=== PATIENT | male | born 1945 | race Caucasian/White ===

== ENCOUNTER 2021-07-01 07:40 | Observation (INO) | payer OTHER ==
[2021-07-01 08:21] VITALS: BMI 21.2
[2021-07-01 09:46] LABS: BASO % 0.4 % (0-2.0); EOS % 0.1 % (0-4.5); HEMATOCRIT 37.8 % (35.4-49); HEMOGLOBIN 12.9 GM/dL (11.7-16.9); LYMPH % 8.9 % (8-40); MCH 31.4 pg (25.7-33.7); MCHC 34.1 g/dl (32.0-35.9); MEAN CELL VOLUME 91.9 fl (80-96); MEAN PLT VOLUME 10.2 fl (7.5-11.1); MONO % 9.3 % (3.8-10.2); NEUT % 81.3 % (42.8-82.8); PLATELET COUNT 214 10^3/uL (134-434); RBC 4.11 M/mm3 (4.00-5.60); RDW 14.5 % (11.9-15.9); WHITE BLOOD COUNT 8.7 K/mm3 (4.0-10.0)
[2021-07-01 09:47] LABS: INR 1.08 (0.83-1.09); PROTHROMBIN TIME (PATIENT) 12.6 SEC (9.7-13.0)
[2021-07-01 09:50] LABS: ACTIVATED PTT 26.8 SECONDS (25.2-36.5)
[2021-07-01 09:56] LABS: CHLORIDE 107 mmol/L (98-107); SODIUM 142 mmol/L (136-145)
[2021-07-01 09:58] LABS: CALCIUM 9.3 mg/dL (8.5-10.1)
[2021-07-01 09:59] LABS: ALBUMIN 3.7 g/dl (3.4-5.0); ANION GAP 7 MMOL/L (8-16); BLOOD UREA NITROGEN 26.1 mg/dL (7-18); CO2 28 mmol/L (21-32); GLUCOSE,RANDOM 163 mg/dL (74-106); MAGNESIUM 1.7 mg/dL (1.8-2.4)
[2021-07-01 10:02] LABS: CREATININE 1.2 mg/dL (0.55-1.3); SGPT/ALT 21 U/L (13-61)
[2021-07-01 10:04] LABS: BILIRUBIN,TOTAL 0.5 mg/dL (0.2-1); TOT PROT 6.8 g/dl (6.4-8.2)
[2021-07-01 10:05] LABS: ALK PHOS 97 U/L (45-117)
[2021-07-01 10:07] LABS: N-TERMINAL BNP 331.6 pg/ml (5-125); SGOT/AST 18 U/L (15-37)
[2021-07-01] MEDS ORDERED: SODIUM CHLORIDE 0.9% 500 ML INFUS.BAG IV ONE (12:36)
[2021-07-01 14:26] LABS: EPI CELLS 3 /uL (0-25.1); HYALINE CASTS 1 /uL (0-3.1); PH,URINE 6.5 (5.0-8.0); URINE APPEARANCE CLEAR; URINE BACTERIA 12 /uL (0-1359); URINE BILIRUBIN NEGATIVE (NEGATIVE); URINE COLOR YELLOW; URINE GLUCOSE (UA) NEGATIVE (NEGATIVE); URINE KETONE 1+ (NEGATIVE); URINE LEUK ESTERASE NEGATIVE (NEGATIVE); URINE NITRITE NEGATIVE (NEGATIVE); URINE PROTEIN 1+ (NEGATIVE); URINE RBC 21 /uL (0-23.9); URINE UROBILINOGEN 0.2 mg/dL (0.2-1.0); URINE WBC 3 /uL (0-25.8)
[2021-07-01] MEDS: SODIUM CHLORIDE 0.45% 1,000 ML IV SCH ×2 (17:25→21:44)
[2021-07-01] MEDS: INSULIN SLIDING SCALE (NOVOLOG) 1 VIAL SQ SCH ×2 (21:17→21:52)
[2021-07-01] MEDS: CARBIDOPA/LEVODOPA 25/100 TABLET (FP) PO SCH (21:48)
[2021-07-01] MEDS ORDERED: CARBIDOPA/LEVODOPA 25/100 TABLET (FP) PO SCH (22:00)
[2021-07-02] MEDS: CARBIDOPA/LEVODOPA 25/100 TABLET (FP) PO SCH ×2 (06:05→16:59)
[2021-07-02] MEDS: INSULIN SLIDING SCALE (NOVOLOG) 1 VIAL SQ SCH ×2 (06:14→13:51)
[2021-07-02 09:34] LABS: HEMATOCRIT 37.3 % (35.4-49); HEMOGLOBIN 12.5 GM/dL (11.7-16.9); MCH 30.8 pg (25.7-33.7); MCHC 33.4 g/dl (32.0-35.9); MEAN CELL VOLUME 92.4 fl (80-96); PLATELET COUNT 209 10^3/uL (134-434); RBC 4.04 M/mm3 (4.00-5.60); RDW 14.4 % (11.9-15.9); WHITE BLOOD COUNT 5.1 K/mm3 (4.0-10.0)
[2021-07-02] MEDS ORDERED: TAMSULOSIN HCL 0.4 MG CAP PO SCH (10:00)
[2021-07-02 10:09] LABS: CALCIUM 8.6 mg/dL (8.5-10.1)
[2021-07-02 10:10] LABS: ALBUMIN 3.2 g/dl (3.4-5.0); BLOOD UREA NITROGEN 17.4 mg/dL (7-18); MAGNESIUM 1.7 mg/dL (1.8-2.4)
[2021-07-02 10:13] LABS: CREATININE 0.9 mg/dL (0.55-1.3); PHOSPHOROUS 3.3 mg/dL (2.5-4.9)
[2021-07-02 10:16] LABS: BILIRUBIN,TOTAL 0.4 mg/dL (0.2-1)
[2021-07-02] MEDS: ENOXAPARIN NA (PORCINE) 40 MG/0.4 ML DISP.SYRIN SQ SCH ×2 (10:53→10:54)
[2021-07-02] MEDS ORDERED: MAGNESIUM OXIDE 400 MG TABLET (FP) PO ONE (12:50)
[2021-07-02 15:28] VITALS: BP 112/65; PULSE 88; TEMP 98.9
[2021-07-02] MEDS ORDERED: ATORVASTATIN CA 40 MG TABLET (FP) PO SCH (22:00)
== END 2021-07-02 17:56 | disposition home health service (06) ==
LOC: JER 07:40 → JERBED 08:51 → INTOOBSV 08:51 → J8W 20:31
PROVIDERS: ADMIT Internal Medicine; ATTEND Internal Medicine
DX: R55 Syncope and collapse (principal); R53.1 Weakness; R62.7 Adult failure to thrive; Z68.21 Body mass index [BMI] 21.0-21.9, adult; R26.2 Difficulty in walking, not elsewhere classified; W18.39XA Other fall on same level, initial encounter; Z91.81 History of falling; Y93.01 Activity, walking, marching and hiking; Y92.89 Other specified places as the place of occurrence of the external cause; E11.9 Type 2 diabetes mellitus without complications; I45.19 Other right bundle-branch block; N40.0 Benign prostatic hyperplasia without lower urinary tract symptoms; E78.5 Hyperlipidemia, unspecified; G20 Parkinson's disease; Z79.84 Long term (current) use of oral hypoglycemic drugs; Z89.512 Acquired absence of left leg below knee; Z29.8 Encounter for other specified prophylactic measures
CPT/HCPCS: 36415; 70450-TC; 71045-TC-FY; 72125-TC; 72170-TC-FY; 73502-TC-RT-FY; 73560-TC-RT-FY; 73590-TC-RT-FY; 80053; 81003; 82550; 82553; 82962; 83735; 83880; 84100; 84443; 84484; 85025; 85027; 85610; 85730; 87086; 87186; 87804; 93005; 93010; 93971-TC; 97161-GP; 99285-25; C9803; G0378; U0003; U0005

== ENCOUNTER 2023-03-15 11:38 | Inpatient (IN) | payer OTHER ==
[2023-03-15 15:16] LABS: BASO % 0.2 % (0-2.0); HEMOGLOBIN 13.1 GM/dL (11.7-16.9); LYMPH % 6.2 % (8-40); MCH 30.2 pg (25.7-33.7); MCHC 32.7 g/dl (32.0-35.9); MEAN CELL VOLUME 92.5 fl (80-96); MONO % 4.5 % (3.8-10.2); NEUT % 89.1 % (42.8-82.8); PLATELET COUNT 287 10^3/uL (134-434); RBC 4.33 M/mm3 (4.00-5.60); RDW 14.4 % (11.9-15.9); WHITE BLOOD COUNT 10.7 K/mm3 (4.0-10.0)
[2023-03-15 15:22] LABS: INR 1.09 (0.83-1.09); PROTHROMBIN TIME (PATIENT) 12.6 SEC (9.7-13.0)
[2023-03-15 15:24] LABS: ACTIVATED PTT 28.3 SECONDS (25.2-36.5)
[2023-03-15 15:36] LABS: POTASSIUM 4.9 mmol/L (3.5-5.1)
[2023-03-15 15:39] LABS: CALCIUM 9.5 mg/dL (8.5-10.1)
[2023-03-15 15:40] LABS: ALBUMIN 3.7 g/dl (3.4-5.0); BLOOD UREA NITROGEN 31.8 mg/dL (7-18)
[2023-03-15 15:43] LABS: CREATININE 1.1 mg/dL (0.55-1.3)
[2023-03-15 15:44] LABS: BILIRUBIN,TOTAL 0.6 mg/dL (0.2-1); TOT PROT 6.9 g/dl (6.4-8.2)
[2023-03-15] MEDS ORDERED: ASPIRIN 81 MG CHEWABLE TABLETS PO ONE (16:41)
[2023-03-15] MEDS ORDERED: ASPIRIN 81 MG CHEWABLE TABLETS ONE (18:18)
[2023-03-15 18:19] LABS: EPI CELLS 6 /uL (0-25.1); HYALINE CASTS 0 /uL (0-3.1); PH,URINE 6.5 (5.0-8.0); URINE APPEARANCE CLEAR; URINE BACTERIA 4 /uL (0-1359); URINE BILIRUBIN NEGATIVE (NEGATIVE); URINE COLOR YELLOW; URINE GLUCOSE (UA) TRACE (NEGATIVE); URINE KETONE TRACE (NEGATIVE); URINE LEUK ESTERASE NEGATIVE (NEGATIVE); URINE NITRITE NEGATIVE (NEGATIVE); URINE PROTEIN 2+ (NEGATIVE); URINE RBC 2030 /uL (0-23.9); URINE UROBILINOGEN 0.2 mg/dL (0.2-1.0); URINE WBC 10 /uL (0-25.8)
[2023-03-15] MEDS ORDERED: DOCUSATE SODIUM 100 MG CAPSULE (FP) PO PRN (23:15)
[2023-03-15] MEDS ORDERED: ACETAMINOPHEN 1000 MG/100 ML BAG IVPB PRN (23:19)
[2023-03-15] MEDS ORDERED: CARBIDOPA/LEVODOPA 25/100 TABLET (FP) ONE (23:40)
[2023-03-15] MEDS: CARBIDOPA/LEVODOPA 25/100 TABLET (FP) PO SCH (23:46)
[2023-03-15] MEDS: SODIUM CHLORIDE 1,000 ML IV SCH (23:46)
[2023-03-16 07:35] LABS: BASO % 0.3 % (0-2.0); EOS % 0.1 % (0-4.5); HEMATOCRIT 37.9 % (35.4-49); HEMOGLOBIN 12.2 GM/dL (11.7-16.9); LYMPH % 15.4 % (8-40); MCH 29.8 pg (25.7-33.7); MCHC 32.2 g/dl (32.0-35.9); MEAN CELL VOLUME 92.5 fl (80-96); MONO % 11.7 % (3.8-10.2); NEUT % 72.5 % (42.8-82.8); PLATELET COUNT 262 10^3/uL (134-434); RBC 4.09 M/mm3 (4.00-5.60); RDW 14.1 % (11.9-15.9); WHITE BLOOD COUNT 11.2 K/mm3 (4.0-10.0)
[2023-03-16 07:49] LABS: POTASSIUM 4.1 mmol/L (3.5-5.1)
[2023-03-16 07:53] LABS: BLOOD UREA NITROGEN 30.3 mg/dL (7-18); MAGNESIUM 1.3 mg/dL (1.8-2.4)
[2023-03-16 07:56] LABS: CREATININE 1.2 mg/dL (0.55-1.3)
[2023-03-16 08:00] LABS: PHOSPHOROUS 3.4 mg/dL (2.5-4.9)
[2023-03-16] MEDS: INSULIN SLIDING SCALE (NOVOLOG) 1 VIAL SQ SCH ×4 (08:02→23:08)
[2023-03-16] MEDS ORDERED: CARBIDOPA/LEVODOPA 25/100 TABLET (FP) ONE ×2 (08:13→08:22)
[2023-03-16] MEDS: CARBIDOPA/LEVODOPA 25/100 TABLET (FP) PO SCH ×3 (08:18→23:08)
[2023-03-16] MEDS: TAMSULOSIN HCL 0.4 MG CAP PO SCH (09:40)
[2023-03-16] MEDS: PANTOPRAZOLE 40 MG TABLET PO SCH (11:35)
[2023-03-16] MEDS ORDERED: PANTOPRAZOLE 40 MG TABLET PO ONE (11:45)
[2023-03-16 18:37] VITALS: BMI 21.2
[2023-03-16] MEDS ORDERED: ATORVASTATIN CA 20 MG TABLET (FP) ONE (21:51)
[2023-03-16] MEDS: ATORVASTATIN CA 40 MG TABLET (FP) PO SCH (23:09)
[2023-03-17] MEDS: CARBIDOPA/LEVODOPA 25/100 TABLET (FP) PO SCH ×3 (06:24→21:58)
[2023-03-17] MEDS: SODIUM CHLORIDE 1,000 ML IV SCH (06:26)
[2023-03-17] MEDS: INSULIN SLIDING SCALE (NOVOLOG) 1 VIAL SQ SCH ×5 (06:27→22:02)
[2023-03-17 08:03] LABS: BASO % 0.4 % (0-2.0); EOS % 1.9 % (0-4.5); HEMATOCRIT 36.2 % (35.4-49); HEMOGLOBIN 11.9 GM/dL (11.7-16.9); LYMPH % 18.8 % (8-40); MCH 30.6 pg (25.7-33.7); MCHC 32.9 g/dl (32.0-35.9); MONO % 10.7 % (3.8-10.2); NEUT % 68.2 % (42.8-82.8); PLATELET COUNT 240 10^3/uL (134-434); RBC 3.89 M/mm3 (4.00-5.60); RDW 14.2 % (11.9-15.9); WHITE BLOOD COUNT 9.7 K/mm3 (4.0-10.0)
[2023-03-17 08:08] LABS: POTASSIUM 4.1 mmol/L (3.5-5.1)
[2023-03-17 08:15] LABS: BLOOD UREA NITROGEN 33.3 mg/dL (7-18); CALCIUM 8.6 mg/dL (8.5-10.1)
[2023-03-17 08:19] LABS: CREATININE 1.1 mg/dL (0.55-1.3)
[2023-03-17 08:20] LABS: BILIRUBIN,TOTAL 0.7 mg/dL (0.2-1); TOT PROT 5.8 g/dl (6.4-8.2)
[2023-03-17] MEDS: TAMSULOSIN HCL 0.4 MG CAP PO SCH (09:57)
[2023-03-17] MEDS: PANTOPRAZOLE 40 MG TABLET PO SCH (09:57)
[2023-03-17] MEDS ORDERED: INSULIN (NOVOLOG) ASPART 100 UNITS/ML 10ML VIAL ONE (21:57)
[2023-03-17] MEDS: ATORVASTATIN CA 40 MG TABLET (FP) PO SCH (21:58)
[2023-03-18] MEDS: INSULIN SLIDING SCALE (NOVOLOG) 1 VIAL SQ SCH ×5 (06:55→22:11)
[2023-03-18] MEDS: CARBIDOPA/LEVODOPA 25/100 TABLET (FP) PO SCH ×3 (06:56→22:09)
[2023-03-18 08:46] LABS: BASO % 0.3 % (0-2.0); EOS % 3.7 % (0-4.5); HEMATOCRIT 35.6 % (35.4-49); HEMOGLOBIN 12.1 GM/dL (11.7-16.9); LYMPH % 19.8 % (8-40); MCH 31.1 pg (25.7-33.7); MEAN CELL VOLUME 91.7 fl (80-96); MEAN PLT VOLUME 9.6 fl (7.5-11.1); MONO % 9.7 % (3.8-10.2); NEUT % 66.5 % (42.8-82.8); PLATELET COUNT 251 10^3/uL (134-434); RBC 3.88 M/mm3 (4.00-5.60); RDW 14.6 % (11.9-15.9); WHITE BLOOD COUNT 8.3 K/mm3 (4.0-10.0)
[2023-03-18] MEDS: TAMSULOSIN HCL 0.4 MG CAP PO SCH (08:52)
[2023-03-18] MEDS: PANTOPRAZOLE 40 MG TABLET PO SCH (10:24)
[2023-03-18] MEDS ORDERED: INSULIN (NOVOLOG) ASPART 100 UNITS/ML 10ML VIAL ONE (12:05)
[2023-03-18] MEDS: ATORVASTATIN CA 40 MG TABLET (FP) PO SCH (22:08)
[2023-03-18] MEDS: ACETAMINOPHEN 325 MG TABLET (FP) PO PRN (22:09)
[2023-03-19] MEDS: INSULIN SLIDING SCALE (NOVOLOG) 1 VIAL SQ SCH ×4 (06:05→21:31)
[2023-03-19] MEDS: CARBIDOPA/LEVODOPA 25/100 TABLET (FP) PO SCH ×3 (06:06→21:24)
[2023-03-19 09:08] LABS: BASO % 0.6 % (0-2.0); EOS % 4.7 % (0-4.5); HEMATOCRIT 32.8 % (35.4-49); HEMOGLOBIN 10.9 GM/dL (11.7-16.9); LYMPH % 21.7 % (8-40); MCH 30.5 pg (25.7-33.7); MCHC 33.3 g/dl (32.0-35.9); MEAN CELL VOLUME 91.7 fl (80-96); MONO % 10.5 % (3.8-10.2); NEUT % 62.5 % (42.8-82.8); PLATELET COUNT 260 10^3/uL (134-434); RBC 3.57 M/mm3 (4.00-5.60); RDW 14.1 % (11.9-15.9); WHITE BLOOD COUNT 7.2 K/mm3 (4.0-10.0)
[2023-03-19] MEDS: TAMSULOSIN HCL 0.4 MG CAP PO SCH (10:29)
[2023-03-19] MEDS: PANTOPRAZOLE 40 MG TABLET PO SCH (10:29)
[2023-03-19] MEDS: ATORVASTATIN CA 40 MG TABLET (FP) PO SCH (21:24)
[2023-03-20] MEDS: ACETAMINOPHEN 325 MG TABLET (FP) PO PRN (04:52)
[2023-03-20] MEDS: CARBIDOPA/LEVODOPA 25/100 TABLET (FP) PO SCH ×3 (06:31→21:42)
[2023-03-20] MEDS: INSULIN SLIDING SCALE (NOVOLOG) 1 VIAL SQ SCH ×4 (06:31→21:41)
[2023-03-20] MEDS: PANTOPRAZOLE 40 MG TABLET PO SCH (09:48)
[2023-03-20] MEDS: TAMSULOSIN HCL 0.4 MG CAP PO SCH (09:48)
[2023-03-20] MEDS ORDERED: BENZOCAINE/MENTH/CETYLPYRD CL 1 EACH LOZENGE MM PRN (20:32)
[2023-03-20] MEDS: ATORVASTATIN CA 40 MG TABLET (FP) PO SCH (21:42)
[2023-03-21] MEDS: INSULIN SLIDING SCALE (NOVOLOG) 1 VIAL SQ SCH ×5 (06:09→21:44)
[2023-03-21] MEDS: CARBIDOPA/LEVODOPA 25/100 TABLET (FP) PO SCH ×3 (06:09→21:39)
[2023-03-21 08:10] LABS: BASO % 0.5 % (0-2.0); EOS % 3.9 % (0-4.5); HEMOGLOBIN 11.3 GM/dL (11.7-16.9); LYMPH % 15.8 % (8-40); MCH 31.1 pg (25.7-33.7); MCHC 34.3 g/dl (32.0-35.9); MEAN CELL VOLUME 90.6 fl (80-96); MEAN PLT VOLUME 9.4 fl (7.5-11.1); MONO % 8.6 % (3.8-10.2); NEUT % 71.2 % (42.8-82.8); PLATELET COUNT 275 10^3/uL (134-434); RBC 3.65 M/mm3 (4.00-5.60); RDW 14.1 % (11.9-15.9)
[2023-03-21 08:23] LABS: POTASSIUM 4.1 mmol/L (3.5-5.1)
[2023-03-21 08:30] LABS: CALCIUM 8.5 mg/dL (8.5-10.1)
[2023-03-21 08:31] LABS: ALBUMIN 2.9 g/dl (3.4-5.0); BLOOD UREA NITROGEN 29.9 mg/dL (7-18)
[2023-03-21 08:33] LABS: BILIRUBIN,TOTAL 0.4 mg/dL (0.2-1)
[2023-03-21] MEDS: TAMSULOSIN HCL 0.4 MG CAP PO SCH (09:30)
[2023-03-21] MEDS: PANTOPRAZOLE 40 MG TABLET PO SCH (09:33)
[2023-03-21] MEDS ORDERED: INSULIN (NOVOLOG) ASPART 100 UNITS/ML 10ML VIAL ONE (21:37)
[2023-03-21] MEDS: ATORVASTATIN CA 40 MG TABLET (FP) PO SCH (21:39)
[2023-03-22] MEDS: CARBIDOPA/LEVODOPA 25/100 TABLET (FP) PO SCH ×2 (06:09→13:42)
[2023-03-22] MEDS: INSULIN SLIDING SCALE (NOVOLOG) 1 VIAL SQ SCH ×3 (06:09→17:18)
[2023-03-22] MEDS: PANTOPRAZOLE 40 MG TABLET PO SCH (10:06)
[2023-03-22] MEDS: TAMSULOSIN HCL 0.4 MG CAP PO SCH (10:06)
[2023-03-22 20:01] VITALS: BP 152/75; PULSE 84; RESP 20; TEMP 98.7
== END 2023-03-22 20:46 | DRG 726 ==
LOC: JER 11:38 → JERBED 16:42 → J4W 03-16 14:27 → OBSVTOIN 03-16 19:04
PROVIDERS: ADMIT Internal Medicine; ATTEND Family Medicine
PROC: 0T9B70Z Drainage of Bladder with Drainage Device, Via Natural or Artificial Opening (ICD-10-PCS; principal; 2023-03-20)
DX: N40.1 Benign prostatic hyperplasia with lower urinary tract symptoms (principal); R33.8 Other retention of urine; I10 Essential (primary) hypertension; E78.5 Hyperlipidemia, unspecified; R19.7 Diarrhea, unspecified; R31.0 Gross hematuria; G20 Parkinson's disease; E11.40 Type 2 diabetes mellitus with diabetic neuropathy, unspecified; I45.10 Unspecified right bundle-branch block; M51.36 Other intervertebral disc degeneration, lumbar region; M48.061 Spinal stenosis, lumbar region without neurogenic claudication; L89.151 Pressure ulcer of sacral region, stage 1; W18.39XA Other fall on same level, initial encounter; Y92.092 Bedroom in other non-institutional residence as the place of occurrence of the external cause; Z89.519 Acquired absence of unspecified leg below knee
CPT/HCPCS: 0241U-QW; 36415; 70450-TC; 70486-TC; 71046-TC-FY; 72125-TC; 72128-TC; 72131-TC; 72170-TC-FY; 73562-TC-RT-FY; 80048; 80053; 81003; 82550; 82553; 82728; 82962; 83540; 83550; 83735; 84100; 84484; 85025; 85610; 85730; 87086; 93005; 93010; 93306-TC; 97116-GP; 97162-GP; 99285-25; G0378